=== PATIENT | female | born 1960 | race Caucasian/White ===

== ENCOUNTER 2021-02-02 19:06 | Emergency (ER) | payer OTHER ==
[~2021-02-02 19:06] MED LIST: ASPIRIN CHEWABL81 MG PO; BIOTIN5000 MC1 PO; CHANTIX1 MG PO; CHILDREN'S ASPI81 MG PO; COZAAR50 MG PO; GLUCOSAMINE1000 MG PO; NAPROSYN500 MG PO; PERCOCET 5-3251 EACH PO; SLEEP AID25 M2 PO
[2021-02-02 20:26] LABS: BASOPHIL 0.3 % (0-2); EOSINOPHIL 1.2 % (0-5); HCT 40.5 % (37.0-47.0); HGB 13.2 g/dl (12.5-16.0); LYMPHOCYTE 20.9 % (15-48); MCH 28.7 pg (25.0-31.0); MCHC 32.6 g/dL (32.0-36.0); MONOCYTE 7.2 % (0-12); MPV 8.9 fL (6.0-9.5); NEUTROPHIL 70.1 % (41-80); NRBC 0; PLT 256 K/uL (150-400); WBC 9.6 K/uL (4.0-10.5)
[2021-02-02 20:27] LABS: BILIRUBIN NEGATIVE (NEGATIVE); BLOOD 3+ Ery/uL (NEGATIVE); CLARITY CLEAR (CLEAR); COLOR YELLOW (YELLOW); GLUCOSE (U) NORMAL (NORMAL); LEUKOCYTES NEGATIVE Leu/uL (NEGATIVE); NITRITE NEGATIVE (NEGATIVE); PROTEIN 2+ mg/dL (NEGATIVE); SPECIFIC GRAVITY >=1.030 (1.001-1.030); UROBILINOGEN 0.2 mg/dL (0.2-1.0)
[2021-02-02 20:38] LABS: AMORPHOUS URATES CRYSTALS TRACE
[2021-02-02 20:50] LABS: ALBUMIN 3.5 g/dL (3.4-5.0); BILIRUBIN - TOTAL 0.2 mg/dL (0.2-1.0); BUN/CREAT RATIO (CALC) 31.4 RATIO; CREATININE 0.51 mg/dL (0.51-0.95); GLOBULIN (CALCULATION) 3.6 g/dL; POTASSIUM 3.7 mmol/L (3.5-5.1); TOTAL PROTEIN 7.1 g/dL (6.4-8.2)
== END 2021-02-02 21:35 | disposition home or self-care (01) ==
LOC: FER 19:06
PROVIDERS: Emergency Medicine Emergency Medical Services
DX: I10 Essential (primary) hypertension (principal); R07.9 Chest pain, unspecified; R00.1 Bradycardia, unspecified; Z79.899 Other long term (current) drug therapy
CPT/HCPCS: 36415; 71045; 80053; 81001; 84443; 84484; 85025; 93005

== ENCOUNTER → 2021-08-28 | Day surgery (SDC) | payer OTHER ==
[~2021-08-28] VITALS: Ht 152.4 cm; Wt 81.6 kg
[~2021-08-28] MED LIST changes: +ASPIRIN EC81 MG PO; +ATARAX25 MG PO; +B COMPLEX1 EACH PO; +COQ-10100 MG PO; +HCTZ12.5 MG PO; +MAGNESIUM100 MG PO
[2021-08-28 11:47] LABS: BUN/CREAT RATIO (CALC) 30.4 RATIO; CREATININE 0.56 mg/dL (0.51-0.95)
== END | disposition home or self-care (01) ==
LOC: FAS 10:34
PROVIDERS: Anesthesiology
DX: M65.842 Other synovitis and tenosynovitis, left hand (principal)
CPT/HCPCS: 36415; 80048; J1100; J1885; J2250; J2405; J2704; J3010; J7120